=== PATIENT | male | born 1985 | race Two or more races ===

== ENCOUNTER 2016-11-30 11:58 | Outpatient (CLI) | payer OTHER | END 2016-11-30 11:59 | disposition critical access hospital (66) | LOC: EMS 11:58 | PROVIDERS: ATTEND Surgery | DX: R06.00 Dyspnea, unspecified (principal); L50.0 Allergic urticaria | CPT/HCPCS: A0425; A0427 ==

== ENCOUNTER 2016-11-30 12:26 | Emergency (ER) | payer OTHER ==
[2016-11-30] MEDS ORDERED: DEXAMETHASONE 10 MG/ML VIAL PO STA (12:30)
--- NOTE | 2016-11-30 12:32 | ED Physician Documentation ---
History of Present Illness - Stated complaint Stated Complaint: ALLERGIC REACTION - Additonal information Additional information: hx from pt and EMS hx all toradol and amox no exposure to those nor new food lotion deterg insect bites etc developed hives last night worse today plus lip swelling tight throat and soa went to [facility] and given epi 0.3 and 911 was called and pt was given benadryl by EMS and is feeling better now Review of Systems Constitutional: denies: Fever, Chills Ears: reports: Other (lip throat swelling) Throat: denies: Sore throat Cardiac: denies: Chest pain / pressure Respiratory: reports: Dyspnea GI: denies: Abdominal Pain, Nausea, Vomiting, Diarrhea Skin: reports: Rash Endocrine: denies: Easy bruising / bleeding Immunocompromised: denies: Immunocompromised PD PAST MEDICAL HISTORY - Present Medications Home Medications: Ambulatory Orders Medication Instructions Recorded Confirmed Epinephrine [Epipen 2-Marty] 0.3 mg IJ ONCE PRN #1 unit 11/30/16 Loratadine [Claritin] 10 mg PO DAILY #3 tablet 11/30/16 predniSONE [Deltasone] 60 mg PO DAILY 3 Days 11/30/16 - Allergies Allergies/Adverse Reactions: Allergies Allergy/AdvReac Type Severity Reaction Status Date / Time amoxicillin Allergy Unknown Verified 11/30/16 12:36 ketorolac tromethamine * Allergy Unknown Verified 11/30/16 12:36 [From Toradol] PD ED PE NORMAL - Vitals Vital signs reviewed: Yes - General General: Alert and oriented X 3 - HEENT HEENT: Other (no oral edema now) - Cardiac Cardiac: RRR - Respiratory Respiratory: No respiratory distress, Clear bilaterally - Abdomen Abdomen: Soft, Non tender - Derm Derm: Other (no hives now) - Neuro Neuro: Alert and oriented X 3 Results - Vitals Vitals: Vital Signs - 24 hr 11/30/16 11/30/16 11/30/16 12:19 12:40 14:44 Temperature 36.8 C Heart Rate 82 84 Respiratory 21 23 Rate Blood Pressure 124/75 133/77 H O2 Saturation 98 98 Oxygen O2 Source Room air PD MEDICAL DECISION MAKING - ED course ED course: pt developed some more hives but no further mouth throat sx, given pepcid and more benadryl and all sx resolved, observed several hr and epi will have worn off by now s rebound and think pt safe for dc Departure - Departure Disposition: Home, Self Care Clinical Impression: Anaphylaxis Qualifiers: Encounter type: initial encounter Qualified Code(s): T78.2XXA - Anaphylactic shock, unspecified, initial encounter Condition: Good Instructions: ED Anaphylaxis General, Epinephrine injection Auto-injector [facility] [place] [facility] Group] Prescriptions: Loratadine [Claritin] 10 mg PO DAILY #3 tablet predniSONE [Deltasone] 60 mg PO DAILY 3 Days Epinephrine [Epipen 2-Marty] 0.3 mg IJ ONCE PRN #1 unit PRN Reason: Anaphylaxis Comments: You need to take the prednisone and claritin once daily for three days - start tonight The epi-pen is only to be used for a severe reaction with mouth/throat swelling or trouble breathing. Since your reaction was very severe and we do not know what you are allergic to , I recommend that you be referred to an janitorial tech for skin testing - your PMD at [facility] can assist with this referral Your blood pressure was high today - probably from the epi-pen - please have your PMD recheck it
[2016-11-30] MEDS ORDERED: DEXAMETHASONE 10 MG/ML VIAL ONE (12:55)
[2016-11-30] MEDS ORDERED: FAMOTIDINE 20 MG in SODIUM CHLORIDE 0.9% 50 ML IV STA (14:16)
[2016-11-30] MEDS ORDERED: FAMOTIDINE 20 MG/50 ML 50 ML IV ONE (14:19)
[2016-11-30] MEDS ORDERED: diphenhydrAMINE INJ 50 MG/ML VIAL IVP STA (14:47)
[2016-11-30] MEDS ORDERED: diphenhydrAMINE INJ 50 MG/ML VIAL ONE (14:48)
[2016-11-30 17:05] VITALS: BP 131/82
== END 2016-11-30 17:04 | disposition home or self-care (01) ==
LOC: ED 12:26
DX: T78.2XXA Anaphylactic shock, unspecified, initial encounter (principal); R03.0 Elevated blood-pressure reading, without diagnosis of hypertension
CPT/HCPCS: 96374; 96375; 99283; 99284

== ENCOUNTER 2016-12-01 06:24 | Emergency (ER) | payer OTHER ==
[2016-12-01] MEDS ORDERED: diphenhydrAMINE 25 MG CAPSULE PO STA (07:27)
[2016-12-01] MEDS ORDERED: DEXAMETHASONE 10 MG/ML VIAL PO STA (07:27)
[2016-12-01] MEDS ORDERED: diphenhydrAMINE 25 MG CAPSULE PO ONE ×2 (07:51→07:53)
[2016-12-01] MEDS ORDERED: CHERRY SYRUP 10 ML UDC PO ONE (07:51)
[2016-12-01] MEDS ORDERED: DEXAMETHASONE 10 MG/ML VIAL ONE (07:51)
--- NOTE | 2016-12-01 08:04 | ED Physician Documentation ---
PD HPI SKIN - Stated complaint Stated Complaint: BODY RASH - Chief complaint Chief Complaint: Allergic Rx - History obtained from History obtained from: Patient, Family (Spouse) - History of Present Illness Timing - onset: How many days ago (2) Timing - details: Still present in ED Location: [place] Quality / character: Itchy Improved by: Benadryl, Epi Associated symptoms: No: Fever, Dyspnea, N/V/D Contributing factors: Unknown Recently seen: Emergency Dept (Was seen in the emergency department here yesterday.) - Treatment prior to arrival Treatment prior to arrival: Benadryl 12.5 mg taken orally at 5 AM, 2 hours prior to arrival, and EpiPen was administered prior to arrival. - Additional information Additional information: The patient is a 31-year-old male who presents with hives that started 2 days ago and recurred again this morning. He was seen initially at the [facility] yesterday and subsequently sent to the emergency room by ambulance after treatment with epinephrine for hives with respiratory involvement. He was discharged yesterday from the emergency department with prednisone and Claritin , as well as an EpiPen to use if needed. This morning he awoke with recurrent hives involving face, neck, trunk, and extremities. He felt thickness in his throat. Since taking 12.5 mg oral Benadryl and EpiPen his symptoms have improved. He denies history of similar symptoms in the past. He was taking no medication at the time of onset of his symptoms 2 days ago. He recently traveled here from [facility], 5 days ago. He denies any insect bite, ingestion of nuts, shellfish, or other foods that are different from usual. He reports that his son had similar hives in February 2016, in [place]. Review of Systems Constitutional: denies: Fever Eyes: denies: Discharge Ears: denies: Tinnitus/ringing Nose: denies: Congestion Throat: denies: Sore throat Cardiac: denies: Chest pain / pressure Respiratory: denies: Dyspnea, Cough GI: denies: Abdominal Pain, Nausea, Vomiting : denies: Dysuria Skin: reports: Rash Musculoskeletal: denies: Neck pain, Back pain, Extremity swelling Neurologic: denies: Focal weakness, Numbness, Syncope, Headache PD PAST MEDICAL HISTORY - Past Medical History Cardiovascular: None Respiratory: None Neuro: None Endocrine/Autoimmune: None - Past Surgical History Past Surgical History: No - Present Medications Home Medications: Ambulatory Orders Medication Instructions Recorded Confirmed Epinephrine [Epipen 2-Marty] 0.3 mg IJ ONCE PRN #1 unit 11/30/16 12/01/16 Loratadine [Claritin] 10 mg PO DAILY #3 tablet 11/30/16 12/01/16 predniSONE [Deltasone] 60 mg PO DAILY 3 Days 11/30/16 12/01/16 Epinephrine [Epipen 2-Marty] 0.3 mg IJ ONCE PRN #2 auto.injct 12/01/16 - Allergies Allergies/Adverse Reactions: Allergies Allergy/AdvReac Type Severity Reaction Status Date / Time amoxicillin Allergy Unknown Verified 12/01/16 06:31 ketorolac tromethamine * Allergy Unknown Verified 12/01/16 06:31 [From Toradol] - Social History Does the pt smoke?: No Smoking Status: Never smoker Does the pt drink ETOH?: No Does the pt have substance abuse?: No - Immunizations Immunizations are current?: Yes - POLST Patient has POLST: No PD ED PE NORMAL - Vitals Vital signs reviewed: Yes (Normal) - General General: Alert and oriented X 3, Well developed/nourished - HEENT HEENT: Atraumatic, EOMI, Ears normal, Pharynx benign - Neck Neck: Supple, no meningeal sign, No adenopathy, No JVD - Cardiac Cardiac: RRR, No murmur - Respiratory Respiratory: No respiratory distress, Clear bilaterally - Abdomen Abdomen: Soft, Non tender - Back Back: No CVA TTP - Derm Derm: Other (Scattered urticarial rash, involving the trunk, neck, and extremities. These are much improved compared to pictures the patient took at home, prior to administering medication.) - Extremities Extremities: No edema, No calf tenderness / cord - Neuro Neuro: Alert and oriented X 3, No motor deficit, Normal speech Results - Vitals Vitals: Vital Signs - 24 hr 12/01/16 09:53 Temperature 36.6 C Heart Rate 82 Respiratory 17 Rate Blood Pressure 133/84 H O2 Saturation 99 Oxygen O2 Source Room air PD MEDICAL DECISION MAKING - ED course Complexity details: reviewed old records, re-evaluated patient, considered differential, d/w patient, d/w family ED course: The patient's presentation is significant for urticarial rash of uncertain etiology. Initial treatment included administration of dexamethasone 10 mg orally, and Benadryl 25 mg orally. 08:30 Upon reevaluation of the patient, he has little change from his initial presentation, and is asking for IV medication for a more rapid response. Further treatment included administration of Benadryl 50 mg IV, and famotidine 20 mg IV. His rash subsequently diminished significantly. He is being discharged with prescription for replacement EpiPen. 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 Departure - Departure Disposition: 01 Home, Self Care Clinical Impression: Urticaria Condition: Stable Instructions: ED Allergic Reaction General Other Prescriptions: Epinephrine [Epipen 2-Marty] 0.3 mg IJ ONCE PRN #2 auto.injct PRN Reason: Anaphylaxis Comments: 1. Continue using Benadryl, up to 50 mg 3-4 times daily if needed for rash and itching. 2. Continue prednisone as previously prescribed. 3. Use EpiPen if you develop any respiratory difficulty. 4. Follow-up with your primary physician upon return to [place]. 5. Return to the emergency department if you develop increasing rash, increasing difficulty swallowing, any shortness of breath, or otherwise worsening symptoms. Discharge Date/Time: 12/01/16 09:53
[2016-12-01] MEDS ORDERED: FAMOTIDINE 20 MG/50 ML 50 ML IV ONE (08:30)
[2016-12-01] MEDS ORDERED: diphenhydrAMINE INJ 50 MG/ML VIAL ONE (08:30)
[2016-12-01] MEDS ORDERED: FAMOTIDINE 20 MG/2 ML VIAL IVP STA (08:32)
[2016-12-01] MEDS ORDERED: diphenhydrAMINE INJ 50 MG/ML VIAL IVP STA (08:32)
[2016-12-01 09:54] VITALS: BP 133/84
--- NOTE | 2016-12-01 11:55 | ED Physician Documentation ---
ED Addendum - Addendum Addendum: 12/01/16 11:54 unscheduled return visit - chart accessed for follow up and educational purposes
== END 2016-12-01 09:53 | disposition home or self-care (01) ==
LOC: ED 06:24
DX: L50.9 Urticaria, unspecified (principal)
CPT/HCPCS: 96374; 96375; 99283; A9270

== ENCOUNTER 2023-09-26 07:02 | Outpatient (CLI) | payer OTHER ==
--- NOTE | 2023-09-26 09:48 | MRI Report ---
PROCEDURE: Shoulder LT WO INDICATIONS: LEFT SHOULDER PAIN TECHNIQUE: Noncontrast oblique coronal T2 fast spin echo with fat saturation, oblique sagittal T1 spin echo and T2 fast spin echo with fat saturation, axial T1 spin echo and T2 fast spin echo with fat saturation t hrough the shoulder. COMPARISON: None. FINDINGS: Image quality: Degraded by metallic artifact. Rotator cuff: Limited evaluation of the rotator cuff demonstrates no definite tear. There is mild T2 signal elevation within the posterior infraspinatus tendon at the humeral insertion site extending th e muscular tendinous junction. No rotator cuff muscle atrophy on sagittal images. Bones and bursae: Metallic artifact obscures the acromioclavicular region. Multiple subchondral cyst s within the posterior humeral head. No bone marrow contusions or fractures. No acromioclavicular lesley int degeneration. The acromion demonstrates conventional anatomy, without an os acromiale. No patho logic subacromial/subdeltoid bursal fluid is present. Capsule and soft tissues: No definite labral tear. The long head of the biceps tendon demonstrates no rmal location and morphology. The rotator interval appears normal, without fibrosis. The coracohume ral ligament is normal in thickness. IMPRESSION: 1. Mild infraspinatus tendinopathy. No rotator cuff tear. Reviewed by: Tor Grant MD on 09/26/2023 9:47 AM PDT Approved by: Tor Grant MD on 09/26/2023 9:47 AM PDT Station ID: [id number]
== END 2023-09-26 07:03 | disposition home or self-care (01) ==
LOC: DI 07:02
PROVIDERS: ATTEND Preventive Medicine Aerospace Medicine
DX: M25.512 Pain in left shoulder (principal); M75.82 Other shoulder lesions, left shoulder